=== PATIENT | male | born 1970 | race Caucasian/White ===

== ENCOUNTER 2018-04-18 13:07 | Emergency (ER) | payer SELFPAY ==
[2018-04-18] MEDS ORDERED: CIPROFLOXACIN 0.3% DROPS PREPACK OPHT.BTL TAKEHOME ONE (14:02)
--- NOTE | 2018-04-18 14:02 | EDPHY ---
H & P Time Seen by Provider: 04/18/18 13:38 HPI/ROS: CHIEF COMPLAINT: Pinkeye HISTORY OF PRESENT ILLNESS: Patient is a 47-year-old male presents emergency department with pinkeye in his right eye. He has noticed inflammation in his right conjunctiva. This is slowly progressed. He has been rubbing his eye but notices swelling around his lid. There is no pain with eye movement. No visual change. No fevers or chills. No headache. No nausea vomiting. REVIEW OF SYSTEMS: My complete review of systems is negative except as mentioned in the HPI. Past Medical/Surgical History: Negative Smoking Status: Former smoker Physical Exam: Vitals noted GENERAL: Well-appearing, in no acute distress, alert. No ptosis. Visual acuity: Noted. Eyelids: Normal inspection, everted for exam. Conjunctiva and sclera: Injected. No foreign material. No subconjunctival hemorrhage. No exudate. Corneas: Normal inspection. EOMs: Intact. Pupils: PERRL, normal accommodation. Anterior chambers: Normal inspection. No hyphema. Posterior segments: Normal funduscopic exam Constitutional: Initial Vital Signs Temperature (C) 37.2 C 04/18/18 13:20 Heart Rate 104 H 04/18/18 13:20 Respiratory Rate 16 04/18/18 13:20 O2 Sat (%) 95 04/18/18 13:20 O2 Delivery Mode Room Air Allergies/Adverse Reactions: No Known Drug Allergies Allergy (Verified 04/18/18 13:23) Home Medications: Medication Instructions Recorded Clindamycin HCl [Clindamycin] 300 mg PO TID #30 cap 04/18/18 Lexapro 10 MG 04/18/18 Medical Decision Making ED Course/Re-evaluation: In the emergency department I discussed possible etiologies with the patient. I answered all his questions. I discussed the diagnosis of conjunctivitis, periorbital cellulitis and orbital cellulitis. Patient will be treated with ciprofloxacin drops and clindamycin this will treat both bacterial conjunctivitis as well as periorbital cellulitis. Patient was given warnings. He will follow up with Ophthalmology in 1-2 days. Differential Diagnosis: My differential includes but is not limited to conjunctivitis, periorbital cellulitis, orbital cellulitis, foreign body, ulceration Departure - Departure Disposition: Home, Routine, Self-Care Clinical Impression: Periorbital cellulitis of right eye Conjunctivitis Qualifiers: Conjunctivitis type: acute Acute conjunctivitis type: unspecified Laterality: right Qualified Code(s): H10.31 - Unspecified acute conjunctivitis, right eye Condition: Good Instructions: Periorbital Cellulitis in Adults (ED), Conjunctivitis (ED) Additional Instructions: Return with increasing eye pain, swelling, visual change, fever, vomiting or any other concerns. Take your entire course of oral antibiotics. Use as directed. You need to fill this prescription. Placed 2 drops in your right eye every 2 hr while awake for the next 3 days. Referrals: Shayla Rogers MD [Medical Doctor] - 3-4 days, if not improved Prescriptions: Clindamycin HCl [Clindamycin] 300 mg PO TID #30 cap
[2018-04-18 14:20] VITALS: BP 115/82
== END 2018-04-18 14:18 | disposition home or self-care (01) ==
DX: H10.31 Unspecified acute conjunctivitis, right eye (principal); F17.210 Nicotine dependence, cigarettes, uncomplicated